=== PATIENT | male | born 2000 | race Caucasian/White ===

== ENCOUNTER 2021-03-23 12:33 | Emergency (ER) | payer OTHER, SELFPAY ==
[2021-03-23 12:46] VITALS: BP 130/93; PULSE 103; RESP 18; TEMP 37.4; O2SAT 100
--- NOTE | 2021-03-23 12:50 | ED.ANXIETY ---
HPI - Anxiety General Chief Complaint: Anxiety Stated Complaint: Anxiety Time Seen by Provider: 03/23/21 12:51 Source: patient and RN notes reviewed Mode of arrival: ambulatory Limitations: no limitations History of Present Illness HPI narrative: 21-year-old male presents with concern for anxiety and difficulty swallowing. He reports for the last several weeks he has felt like food might get stuck when he swallows. He does not have this feeling with liquid. He reports today he was eating lunch when he felt like food was getting stuck and it caused him to panic. He reports increased stress lately due to school. He denies history of anxiety or depression. Denies current depression or thoughts of harming himself or others. MD complaint: anxiety Related Data Allergies Allergy/AdvReac Type Severity Reaction Status Date / Time No Known Allergies Allergy Verified 03/23/21 12:54 Review of Systems Review of Systems: CONSTITUTIONAL: Denies malaise, chills, sweats, or fever. EYES: Denies visual changes, redness, or discharge. ENT: Reports difficulty swallowing, feeling of food getting stuck CARDIOVASCULAR: Reports feeling of fast heartbeat RESPIRATORY: Reports feeling of dyspnea. GASTROINTESTINAL: Denies abdominal pain, nausea, vomiting, diarrhea, bloody, or mucous stools. NEUROLOGIC: Denies numbness, weakness, or headache. PSYCHIATRIC: Reports anxiety. Denies depression. All systems reviewed & are unremarkable except as noted in HPI and below PMFSH Comments At time of signature, agree with nursing past medical, surgical, social and family history. There is no relevant family history pertinent to the presenting complaint Exam Narrative: GENERAL: Well-appearing, well-nourished, and in no acute distress. HEAD: Normocephalic, atraumatic. EYES: PERRLA, sclera clear, and EOMI. ENT: Nares clear, turbinates pink, no rhinorrhea or epistaxis. Mucous membranes moist. Oropharynx without erythema or lesions. Tonsils not enlarged and without exudate. NECK: Supple. No lymphadenopathy. No jugular venous distension, thyromegaly, or carotid bruits. Carotids were easily palpable bilaterally. CHEST: No respiratory distress. Clear to auscultation. No bony deformities, no asymmetry. Speaks in full sentences. HEART: Regular rate and rhythm. No murmur heard. Normal peripheral pulses. SKIN: Warm, dry, no visible rash. NEURO: Alert and oriented x3. PSYCH: Normal mood and affect Course Course Emergency Course: Patient is aware of diagnosis, understands and agrees to treatment plan. Anticipatory guidance given. Patient agrees to follow-up as directed and is aware of reasons to seek care at the emergency department. Portions of this record may have been created with voice recognition software Vital Signs Vital signs: Vital Signs Temperature 99.4 F 03/23/21 12:46 Pulse Rate 103 H 03/23/21 12:46 Respiratory Rate 18 03/23/21 12:46 Blood Pressure 130/93 H 03/23/21 12:46 Pulse Oximetry 100 03/23/21 12:46 Temperature 99.4 F 03/23/21 12:46 Pulse Rate 103 H 03/23/21 12:46 Respiratory Rate 18 03/23/21 12:46 Blood Pressure 130/93 H 03/23/21 12:46 Pulse Oximetry 100 03/23/21 12:46 Reviewed. MDM - Anxiety MDM Narrative Medical decision making narrative: Exam findings show no acute concerns or changes; patient is non-toxic appearing and is in no distress. Patient is appropriate for outpatient treatment and follow-up. Differential Diagnosis Differential diagnosis: Likely hyperventilation, panic disorder, acute anxiety and other (Esophageal stricture) Critical Care Time Critical Care Time Critical Care Time: No Discharge Plan Discharge Clinical Impression: Acute anxiety Trouble swallowing Qualifiers: Dysphagia type: unspecified Qualified Code(s): R13.10 - Dysphagia, unspecified Patient Disposition: Home, Self-Care Condition: Stable Instructions: Esophageal Stricture (ED), Anxiety (ED) Additional Instruct
== END 2021-03-23 13:11 | disposition home or self-care (01) ==
PROVIDERS: Emergency Provider Nurse Practitioner
DX: F41.9 Anxiety disorder, unspecified (principal); R13.10 Dysphagia, unspecified
CPT/HCPCS: 99213; G0463